=== PATIENT | male | born 1985 | race Asian ===

== ENCOUNTER 2016-11-19 13:50 | Emergency (ER) | payer SELFPAY ==
[~2016-11-19] VITALS: Ht 180.3 cm; Wt 65.0 kg
[~2016-11-19 13:50] MED LIST: AMIO200T2 PO; APIX5TAB PO; ATEN25 PO; CARV3.1231 PO; FURO-152 PO; LEVE500T53 PO; LISI-661 PO
[2016-11-19] MEDS ORDERED: ACETAMINOPHEN 1000 MG/ISO-OSM 100 ML IV ONE (14:30)
[2016-11-19] MEDS ORDERED: SODIUM CHLORIDE 0.9% 1,000 ML IV ONE (14:30)
[2016-11-19 15:09] LABS: BASOPHILS % (AUTO) 0.5 % (0.0-2.0); EOSINOPHILS % (AUTO) 1.2 % (1.0-6.0); HEMATOCRIT 52.3 % (41-53); HEMOGLOBIN 17.1 g/dL (13.5-17.5); LYMPHOCYTES # (AUTO) 2.5 K/uL (1.0-4.8); LYMPHOCYTES % (AUTO) 30.4 % (22.0-44.0); MEAN CORPUSCULAR HEMOGLOBIN 28.1 pg (26.0-34.0); MEAN CORPUSCULAR HGB CONC 32.7 G/dL (31.0-37.0); MEAN CORPUSCULAR VOLUME 86 fL (80-100); MONOCYTES # (AUTO) 0.7 K/uL (0.1-1.0); NEUTROPHILS % (AUTO) 59.9 % (40.0-70.0); PLATELET COUNT (AUTO) 176 K/uL (150-450); RED BLOOD CELL COUNT(AUTO) 6.08 MIL/uL (4.50-5.90); WHITE BLOOD COUNT (AUTO) 8.4 K/uL (4.5-11.0)
[2016-11-19 15:48] LABS: INFLUENZA TYPE B NEGATIVE FOR TYPE B (NEGATIVE)
[2016-11-19 16:05] LABS: APPEARANCE,URINE CLEAR (CLEAR); GLUCOSE, URINE (UA) NEGATIVE (NEGATIVE); KETONES,URINE NEGATIVE (NEGATIVE); LEUKOCYTE ESTERASE ,URINE NEGATIVE (NEGATIVE); OCCULT BLOOD,URINE NEGATIVE (NEGATIVE); PROTEIN,URINE NEGATIVE (NEGATIVE)
[2016-11-19 16:14] LABS: ADD UA MICROSCOPIC NO
[2016-11-19 16:15] LABS: ANION GAP 15 mmol/L (8-16); CALCIUM, TOTAL 8.4 mg/dL (8.8-10.5); CARBON DIOXIDE 21 mmol/L (22-29); CHLORIDE 103 mmol/L (98-107); CREATININE 1.45 mg/dL (0.60-1.30); GLOMERULAR FILTR. RATE CALC 56 mL/min (>60); POTASSIUM 4.2 mmol/L (3.5-5.1); SODIUM SERUM 139 mmol/L (136-145); UREA NITROGEN, BLOOD 18 mg/dL (7-18)
[2016-11-19 16:26] LABS: ALANINE AMINOTRANSFERASE 68 U/L (12-78); ALBUMIN 3.5 g/dL (3.4-5.0); ASPARTATE AMINOTRANSFERASE 44 U/L (15-37); BILIRUBIN,TOTAL 1.8 mg/dL (0.1-1.0); CREATINE KINASE, TOTAL 64 U/L (39-308); TOTAL PROTEIN, SERUM 6.8 g/dL (6.4-8.2)
[2016-11-19 16:35] LABS: B-TYPE NATRIURETIC PEPTIDE 877 pg/mL (0-100)
[2016-11-19 19:33] VITALS: BP 142/70
== END 2016-11-19 20:17 | disposition home or self-care (01) ==
LOC: EMS 13:51
DX: R10.13 Epigastric pain (principal); R07.9 Chest pain, unspecified; Q87.40 Marfan syndrome, unspecified; J11.1 Influenza due to unidentified influenza virus with other respiratory manifestations; I48.91 Unspecified atrial fibrillation
CPT/HCPCS: 36415; 71010; 71275; 80053; 81003; 82550; 83690; 83880; 84484; 85025; 85379; 87804; 93005; 96365; 99285; J0131; J7030

== ENCOUNTER 2016-12-04 18:14 | Inpatient (IN) | payer SELFPAY ==
[~2016-12-04] VITALS: Ht 180.3 cm; Wt 63.6 kg
[~2016-12-04 18:14] MED LIST changes: -APIX5TAB PO; -ATEN25 PO; -LISI-661 PO
[2016-12-04 18:37] LABS: GLUCOSE,POINT OF CARE 74 MG/DL (70-110)
[2016-12-04 19:04] LABS: BASOPHILS % (AUTO) 0.4 % (0.0-2.0); EOSINOPHILS % (AUTO) 0.6 % (1.0-6.0); HEMATOCRIT 51.7 % (41-53); HEMOGLOBIN 16.8 g/dL (13.5-17.5); LYMPHOCYTES # (AUTO) 3.1 K/uL (1.0-4.8); LYMPHOCYTES % (AUTO) 35.5 % (22.0-44.0); MEAN CORPUSCULAR HGB CONC 32.4 G/dL (31.0-37.0); MEAN CORPUSCULAR VOLUME 86 fL (80-100); MONOCYTES # (AUTO) 0.6 K/uL (0.1-1.0); MONOCYTES % (AUTO) 6.8 % (2.0-9.0); NEUTROPHILS % (AUTO) 56.7 % (40.0-70.0); PLATELET COUNT (AUTO) 193 K/uL (150-450); RED BLOOD CELL COUNT(AUTO) 5.99 MIL/uL (4.50-5.90); RED CELL DISTRIBUTION WIDTH 14.1 % (11.5-14.5); WHITE BLOOD COUNT (AUTO) 8.8 K/uL (4.5-11.0)
[2016-12-04 19:19] LABS: INR 1.1 (0.9-1.1)
[2016-12-04 19:24] LABS: B-TYPE NATRIURETIC PEPTIDE 1250 pg/mL (0-100)
[2016-12-04] MEDS ORDERED: AZITHROMYCIN 500 MG/NS 250 ML IV ONE (20:00)
[2016-12-04] MEDS ORDERED: CefTRIAXone 1 GM/DEXTROSE 50 ML IV ONE (20:00)
[2016-12-04] MEDS ORDERED: FUROSEMIDE 40 MG/4 ML VIAL IVP ONE (20:15)
[2016-12-04 20:26] LABS: ANION GAP 14 mmol/L (8-16); CALCIUM, TOTAL 8.6 mg/dL (8.8-10.5); CARBON DIOXIDE 20 mmol/L (22-29); CHLORIDE 105 mmol/L (98-107); CREATININE 1.42 mg/dL (0.60-1.30); GLOMERULAR FILTR. RATE CALC 57 mL/min (>60); POTASSIUM 4.8 mmol/L (3.5-5.1); SODIUM SERUM 139 mmol/L (136-145); UREA NITROGEN, BLOOD 19 mg/dL (7-18)
[2016-12-04 20:51] LABS: ALANINE AMINOTRANSFERASE 29 U/L (12-78); ALBUMIN 3.7 g/dL (3.4-5.0); ASPARTATE AMINOTRANSFERASE 26 U/L (15-37); BILIRUBIN,TOTAL 1.7 mg/dL (0.1-1.0); CREATINE KINASE MB 0.7 ng/mL (0-5); CREATINE KINASE, TOTAL 76 U/L (39-308); TOTAL PROTEIN, SERUM 6.9 g/dL (6.4-8.2)
[2016-12-04] MEDS ORDERED: FAMOTIDINE 10 MG/ML 2 ML VIAL IVP ONE (21:15)
[2016-12-04] MEDS ORDERED: METOCLOPRAMIDE HCL 5 MG/ML 2 ML VIAL IVP ONE (21:15)
[2016-12-04] MEDS ORDERED: SODIUM CHLORIDE 0.9% 100 ML ONE (21:29)
[2016-12-04] MEDS ORDERED: IOVERSOL 350 MG/ML 100 ML VIAL ONE (21:29)
[2016-12-04 21:47] LABS: APPEARANCE,URINE CLEAR (CLEAR); GLUCOSE, URINE (UA) NEGATIVE (NEGATIVE); KETONES,URINE TRACE mg/dL (NEGATIVE); LEUKOCYTE ESTERASE ,URINE NEGATIVE (NEGATIVE); OCCULT BLOOD,URINE NEGATIVE (NEGATIVE); PH,URINE 5.5 (5.0-8.0); PROTEIN,URINE POS 1+ (NEGATIVE)
[2016-12-04 21:49] LABS: ADD UA MICROSCOPIC NO
[2016-12-04] MEDS ORDERED: HEPARIN SODIUM 25000 UNITS/D5W 250 ML IV PRN (23:15)
[2016-12-04] MEDS ORDERED: DILTIAZEM HCL 5 MG/ML 5 ML VIAL IVP ONE (23:15)
[2016-12-04] MEDS ORDERED: 0.9% SODIUM CHLORIDE 10 ML SYRINGE IVP PRN (23:30)
[2016-12-04] MEDS ORDERED: ACETAMINOPHEN 325 MG TABLET PO PRN (23:30)
[2016-12-05 00:35] VITALS: BP 107/66
[2016-12-05] MEDS ORDERED: OxyCODONE HCL/ACETAMINOPHEN 5-325 MG TABLET PO PRN ×2 (00:45)
[2016-12-05] MEDS ORDERED: ONDANSETRON HCL 4 MG/2 ML VIAL IVP PRN (00:45)
[2016-12-05] MEDS ORDERED: MAGNESIUM HYDROXIDE SUSPENSION 30 ML UDCUP PO PRN (00:45)
[2016-12-05] MEDS ORDERED: ACETAMINOPHEN 325 MG TABLET PO PRN (00:45)
[2016-12-05] MEDS ORDERED: 0.9% SODIUM CHLORIDE 10 ML SYRINGE IVP PRN (00:45)
[2016-12-05] MEDS: FUROSEMIDE 40 MG/4 ML VIAL IVP SCH ×3 (00:50→21:00)
[2016-12-05] MEDS: LevETIRAcetam 500 MG TABLET PO SCH ×3 (00:50→21:12)
[2016-12-05] MEDS: CARVEDILOL 3.125 MG TABLET PO SCH ×2 (00:50→09:00)
[2016-12-05] MEDS: DOCUSATE SODIUM 100 MG CAPSULE PO SCH ×3 (01:11→21:11)
[2016-12-05 05:22] VITALS: BP 94/66
[2016-12-05 06:33] LABS: BASOPHILS % (AUTO) 0.4 % (0.0-2.0); EOSINOPHILS % (AUTO) 0.3 % (1.0-6.0); HEMATOCRIT 47.2 % (41-53); HEMOGLOBIN 15.1 g/dL (13.5-17.5); LYMPHOCYTES # (AUTO) 1.9 K/uL (1.0-4.8); LYMPHOCYTES % (AUTO) 24.6 % (22.0-44.0); MEAN CORPUSCULAR HEMOGLOBIN 27.8 pg (26.0-34.0); MEAN CORPUSCULAR VOLUME 87 fL (80-100); MONOCYTES # (AUTO) 0.6 K/uL (0.1-1.0); MONOCYTES % (AUTO) 8.1 % (2.0-9.0); NEUTROPHILS # (AUTO) 5.1 K/uL (1.8-7.7); NEUTROPHILS % (AUTO) 66.6 % (40.0-70.0); PLATELET COUNT (AUTO) 169 K/uL (150-450); RED BLOOD CELL COUNT(AUTO) 5.44 MIL/uL (4.50-5.90); RED CELL DISTRIBUTION WIDTH 13.3 % (11.5-14.5); WHITE BLOOD COUNT (AUTO) 7.7 K/uL (4.5-11.0)
[2016-12-05 06:57] LABS: ALBUMIN 3.4 g/dL (3.4-5.0); BILIRUBIN,TOTAL 1.5 mg/dL (0.1-1.0); CALCIUM, TOTAL 8.1 mg/dL (8.8-10.5); CREATININE 1.45 mg/dL (0.60-1.30); TOTAL PROTEIN, SERUM 6.4 g/dL (6.4-8.2)
[2016-12-05 07:25] VITALS: BP 86/49
[2016-12-05] MEDS: PANTOPRAZOLE SODIUM 40 MG/VIAL IVP SCH (09:16)
[2016-12-05] MEDS: AMIODARONE HCL 200 MG TABLET PO SCH (09:16)
[2016-12-05 11:43] VITALS: BP 100/52
[2016-12-05 16:02] VITALS: BP 101/52
[2016-12-05 19:36] VITALS: BP 98/62
[2016-12-05] MEDS ORDERED: IPRATROPIUM BROMIDE 0.5 MG/2.5 ML NEB SOLUTION NEB PRN (21:00)
[2016-12-05] MEDS ORDERED: ALBUTEROL SULFATE 2.5 MG/0.5 ML NEB SOLUTION NEB PRN (21:00)
[2016-12-06] VITALS (8 sets, daily range): BP systolic 92–111; BP diastolic 50–72
[2016-12-06] MEDS: CARVEDILOL 3.125 MG TABLET PO SCH ×3 (00:32→21:00)
[2016-12-06 06:09] LABS: BASOPHILS % (AUTO) 0.6 % (0.0-2.0); EOSINOPHILS % (AUTO) 1.5 % (1.0-6.0); HEMATOCRIT 47.3 % (41-53); HEMOGLOBIN 15.1 g/dL (13.5-17.5); LYMPHOCYTES # (AUTO) 3.2 K/uL (1.0-4.8); LYMPHOCYTES % (AUTO) 43.4 % (22.0-44.0); MEAN CORPUSCULAR HEMOGLOBIN 27.9 pg (26.0-34.0); MEAN CORPUSCULAR HGB CONC 31.8 G/dL (31.0-37.0); MEAN CORPUSCULAR VOLUME 88 fL (80-100); MONOCYTES # (AUTO) 0.5 K/uL (0.1-1.0); MONOCYTES % (AUTO) 7.4 % (2.0-9.0); NEUTROPHILS # (AUTO) 3.5 K/uL (1.8-7.7); NEUTROPHILS % (AUTO) 47.1 % (40.0-70.0); PLATELET COUNT (AUTO) 161 K/uL (150-450); RED BLOOD CELL COUNT(AUTO) 5.39 MIL/uL (4.50-5.90); RED CELL DISTRIBUTION WIDTH 13.2 % (11.5-14.5); WHITE BLOOD COUNT (AUTO) 7.3 K/uL (4.5-11.0)
[2016-12-06 06:32] LABS: CALCIUM, TOTAL 7.8 mg/dL (8.8-10.5); CREATININE 1.39 mg/dL (0.60-1.30); POTASSIUM 3.8 mmol/L (3.5-5.1)
[2016-12-06] MEDS: FUROSEMIDE 40 MG/4 ML VIAL IVP SCH ×2 (08:19→21:00)
[2016-12-06] MEDS: PANTOPRAZOLE SODIUM 40 MG/VIAL IVP SCH (08:22)
[2016-12-06] MEDS: LevETIRAcetam 500 MG TABLET PO SCH ×2 (08:23→22:46)
[2016-12-06] MEDS: AMIODARONE HCL 200 MG TABLET PO SCH ×2 (08:23→22:46)
[2016-12-06] MEDS: DOCUSATE SODIUM 100 MG CAPSULE PO SCH ×2 (08:23→22:46)
[2016-12-06] MEDS ORDERED: PHENYLEPHRINE 200 MG/D5%-WATER 250 ML IV PRN (21:41)
[2016-12-06] MEDS ORDERED: DIGOXIN 250 MCG/ML 2 ML AMP IVP ONE (21:45)
[2016-12-07 00:05] VITALS: BP 101/74
[2016-12-07 04:00] VITALS: BP 69/74
[2016-12-07] MEDS ORDERED: DIGOXIN 250 MCG/ML 2 ML AMP IVP ONE ×2 (04:00)
[2016-12-07 06:35] LABS: ANION GAP 7 mmol/L (8-16); CALCIUM, TOTAL 7.9 mg/dL (8.8-10.5); CARBON DIOXIDE 26 mmol/L (22-29); CHLORIDE 104 mmol/L (98-107); CREATININE 1.25 mg/dL (0.60-1.30); DIGOXIN 0.42 ng/mL (0.90-2.00); GLOMERULAR FILTR. RATE CALC > 60 mL/min (>60); POTASSIUM 4.1 mmol/L (3.5-5.1); SODIUM SERUM 137 mmol/L (136-145); UREA NITROGEN, BLOOD 19 mg/dL (7-18)
[2016-12-07 08:00] VITALS: BP 108/74
[2016-12-07] MEDS: CARVEDILOL 3.125 MG TABLET PO SCH ×2 (09:00→23:56)
[2016-12-07] MEDS: PANTOPRAZOLE SODIUM 40 MG/VIAL IVP SCH (09:17)
[2016-12-07] MEDS: DOCUSATE SODIUM 100 MG CAPSULE PO SCH ×2 (09:18→21:37)
[2016-12-07] MEDS: AMIODARONE HCL 200 MG TABLET PO SCH ×2 (09:18→21:37)
[2016-12-07] MEDS: FUROSEMIDE 40 MG/4 ML VIAL IVP SCH ×2 (09:18→21:37)
[2016-12-07] MEDS: LevETIRAcetam 500 MG TABLET PO SCH ×2 (09:19→21:39)
[2016-12-07 12:00] VITALS: BP 90/61
[2016-12-07 16:00] VITALS: BP 90/53
[2016-12-07 20:00] VITALS: BP 99/64
[2016-12-07] MEDS ORDERED: HEPARIN SODIUM 25000 UNITS/D5W 250 ML IV PRN (22:51)
[2016-12-07] MEDS ORDERED: HEPARIN SODIUM,PORCINE 5,000 UNITS/ML VIAL IVP PRN ×2 (23:00)
[2016-12-08] VITALS: BP 95/64
[2016-12-08 04:00] VITALS: BP 87/61
[2016-12-08 06:27] LABS: INR 1.2 (0.9-1.1); PROTHROMBIN TIME 12.7 SEC (9.4-11.6)
[2016-12-08 06:29] LABS: BASOPHILS % (AUTO) 0.5 % (0.0-2.0); EOSINOPHILS % (AUTO) 1.8 % (1.0-6.0); HEMATOCRIT 50.8 % (41-53); HEMOGLOBIN 16.3 g/dL (13.5-17.5); LYMPHOCYTES # (AUTO) 2.6 K/uL (1.0-4.8); LYMPHOCYTES % (AUTO) 38.8 % (22.0-44.0); MEAN CORPUSCULAR HEMOGLOBIN 27.9 pg (26.0-34.0); MEAN CORPUSCULAR VOLUME 87 fL (80-100); MONOCYTES # (AUTO) 0.5 K/uL (0.1-1.0); MONOCYTES % (AUTO) 7.7 % (2.0-9.0); NEUTROPHILS # (AUTO) 3.4 K/uL (1.8-7.7); NEUTROPHILS % (AUTO) 51.2 % (40.0-70.0); PLATELET COUNT (AUTO) 171 K/uL (150-450); RED BLOOD CELL COUNT(AUTO) 5.84 MIL/uL (4.50-5.90); RED CELL DISTRIBUTION WIDTH 13.1 % (11.5-14.5); WHITE BLOOD COUNT (AUTO) 6.6 K/uL (4.5-11.0)
[2016-12-08 06:40] LABS: ANION GAP 8 mmol/L (8-16); CALCIUM, TOTAL 7.8 mg/dL (8.8-10.5); CARBON DIOXIDE 28 mmol/L (22-29); CHLORIDE 103 mmol/L (98-107); CREATINE KINASE, TOTAL 59 U/L (39-308); CREATININE 1.41 mg/dL (0.60-1.30); GLOMERULAR FILTR. RATE CALC 58 mL/min (>60); POTASSIUM 3.6 mmol/L (3.5-5.1); SODIUM SERUM 139 mmol/L (136-145); UREA NITROGEN, BLOOD 20 mg/dL (7-18)
[2016-12-08 07:17] LABS: B-TYPE NATRIURETIC PEPTIDE 801 pg/mL (0-100)
[2016-12-08 08:00] VITALS: BP 90/64
[2016-12-08] MEDS: AMIODARONE HCL 200 MG TABLET PO SCH ×2 (09:00→21:08)
[2016-12-08] MEDS: DIGOXIN 125 MCG TABLET PO SCH (09:00)
[2016-12-08] MEDS: CARVEDILOL 3.125 MG TABLET PO SCH ×2 (09:00→21:08)
[2016-12-08] MEDS: LevETIRAcetam 500 MG TABLET PO SCH ×2 (09:00→21:08)
[2016-12-08] MEDS: DOCUSATE SODIUM 100 MG CAPSULE PO SCH ×2 (09:00→21:08)
[2016-12-08] MEDS: PANTOPRAZOLE SODIUM 40 MG/VIAL IVP SCH (09:08)
[2016-12-08] MEDS: FUROSEMIDE 40 MG/4 ML VIAL IVP SCH ×2 (09:08→21:08)
[2016-12-08 12:00] VITALS: BP 103/53
[2016-12-08] MEDS ORDERED: SODIUM CHLORIDE 0.9% 100 ML ONE (13:46)
[2016-12-08] MEDS ORDERED: IOVERSOL 350 MG/ML 150 ML VIAL ONE (13:46)
[2016-12-08] MEDS ORDERED: CARVEDILOL 3.125 MG TABLET PO ONE (15:15)
[2016-12-08] MEDS ORDERED: SODIUM CHLORIDE 0.9% 250 ML IV ONE (15:15)
[2016-12-08 16:00] VITALS: BP 102/66
[2016-12-08] MEDS ORDERED: DIGOXIN 250 MCG/ML 2 ML AMP IVP ONE (16:00)
[2016-12-08] MEDS ORDERED: DIGOXIN 250 MCG/ML 2 ML AMP ONE (16:01)
[2016-12-08 20:00] VITALS: BP 119/76
[2016-12-09] VITALS: BP 108/55
[2016-12-09 04:00] VITALS: BP 93/75
[2016-12-09 08:00] VITALS: BP 89/45
[2016-12-09] MEDS: AMIODARONE HCL 200 MG TABLET PO SCH (09:00)
[2016-12-09] MEDS: CARVEDILOL 3.125 MG TABLET PO SCH (09:00)
[2016-12-09] MEDS: LevETIRAcetam 500 MG TABLET PO SCH (09:07)
[2016-12-09] MEDS: PANTOPRAZOLE SODIUM 40 MG/VIAL IVP SCH (09:07)
[2016-12-09] MEDS: DOCUSATE SODIUM 100 MG CAPSULE PO SCH (09:07)
[2016-12-09] MEDS: FUROSEMIDE 40 MG/4 ML VIAL IVP SCH (09:07)
[2016-12-09] MEDS: DIGOXIN 125 MCG TABLET PO SCH (09:17)
[2016-12-09 12:00] VITALS: BP 92/56
[2016-12-09 15:56] LABS: GLUCOSE,POINT OF CARE 125 MG/DL (70-110)
[2016-12-09 16:00] VITALS: BP 99/68
[2016-12-10] MEDS ORDERED: DIGOXIN 125 MCG TABLET PO SCH (09:00)
[2016-12-10] MEDS ORDERED: ASPIRIN 81 MG CHEWABLE TABLET PO SCH (09:00)
== END 2016-12-09 17:30 | disposition left against medical advice (07) | DRG 291 ==
LOC: EMS 18:15 → 5S 12-05 00:04 → ICUN 12-06 21:20 → ICU 12-09 15:00
PROVIDERS: ADMIT Internal Medicine; ATTEND Internal Medicine
DX: I11.0 Hypertensive heart disease with heart failure (principal); J18.9 Pneumonia, unspecified organism; J90 Pleural effusion, not elsewhere classified; Q87.40 Marfan syndrome, unspecified; J44.0 Chronic obstructive pulmonary disease with (acute) lower respiratory infection; Z68.1 Body mass index [BMI] 19.9 or less, adult; D89.9 Disorder involving the immune mechanism, unspecified; I50.22 Chronic systolic (congestive) heart failure; I34.0 Nonrheumatic mitral (valve) insufficiency; I48.91 Unspecified atrial fibrillation; I42.9 Cardiomyopathy, unspecified; Z53.21 Procedure and treatment not carried out due to patient leaving prior to being seen by health care provider; J44.9 Chronic obstructive pulmonary disease, unspecified; G40.909 Epilepsy, unspecified, not intractable, without status epilepticus; I95.9 Hypotension, unspecified; Z91.14 Patient's other noncompliance with medication regimen; Z82.49 Family history of ischemic heart disease and other diseases of the circulatory system; Z79.899 Other long term (current) drug therapy; Z82.41 Family history of sudden cardiac death
CPT/HCPCS: 71275; 75571; 82962; 83735; 87040; 87081; 93005; 93306; 94640; 96365; 96366; 96367; 96375; 99291; C9113; G0480; J0456; J0696; J1160; J1644; J1940; J2765; J3490; J7050

== ENCOUNTER 2017-07-03 02:24 | Emergency (ER) | payer SELFPAY ==
[~2017-07-03] VITALS: Ht 177.8 cm; Wt 63.6 kg
[2017-07-03] MEDS ORDERED: LISI-661 PO (02:39)
[2017-07-03] MEDS ORDERED: RIVA20TA PO (02:39)
[2017-07-03 03:36] VITALS: BP 138/80
== END 2017-07-03 04:11 | disposition home or self-care (01) ==
LOC: EMS 02:26
DX: R00.2 Palpitations (principal); F41.9 Anxiety disorder, unspecified
CPT/HCPCS: 93005; 99283

== ENCOUNTER 2024-09-09 12:07 | Emergency (ER) | payer OTHER ==
[~2024-09-09] VITALS: Ht 180.3 cm; Wt 63.0 kg
[~2024-09-09 12:07] MED LIST changes: +AMIO200 PO; -AMIO200T2 PO; +LEVE-71 PO; -LEVE500T53 PO; +LISI-893 PO; +RIVA20TA PO
[2024-09-09 12:11] VITALS: BP 132/87; PULSE 82; RESP 20; TEMP 98.4; O2SAT 99
[2024-09-09 13:16] LABS: BASOPHILS % (AUTO) 0.4 % (0.0-2.0); EOSINOPHILS % (AUTO) 0.5 % (1.0-6.0); HEMATOCRIT 50.9 % (41-53); HEMOGLOBIN 17.4 g/dL (13.5-17.5); LYMPHOCYTES # (AUTO) 1.8 K/uL (1.0-4.8); LYMPHOCYTES % (AUTO) 24.7 % (22.0-44.0); MEAN CORPUSCULAR HEMOGLOBIN 29.3 pg (26.0-34.0); MEAN CORPUSCULAR HGB CONC 34.1 G/dL (31.0-37.0); MEAN CORPUSCULAR VOLUME 86 fL (80-100); MONOCYTES # (AUTO) 0.3 K/uL (0.1-1.0); MONOCYTES % (AUTO) 4.4 % (2.0-9.0); PLATELET COUNT (AUTO) 180 K/uL (150-450); RED BLOOD CELL COUNT(AUTO) 5.93 MIL/uL (4.50-5.90); WHITE BLOOD COUNT (AUTO) 7.2 K/uL (4.5-11.0)
[2024-09-09 13:19] LABS: ANION GAP 8 mmol/L (8-16); CALCIUM, TOTAL 8.7 mg/dL (8.8-10.5); CARBON DIOXIDE 29 mmol/L (22-29); CHLORIDE 101 mmol/L (98-107); CREATININE 1.23 mg/dL (0.60-1.30); GLOMERULAR FILTR. RATE CALC > 60 mL/min (>60); GLUCOSE,RANDOM 86 mg/dL (70-110); POTASSIUM 3.7 mmol/L (3.5-5.1); SODIUM SERUM 138 mmol/L (136-145); UREA NITROGEN, BLOOD 11 mg/dL (7-18)
[2024-09-09 13:30] LABS: TROPONIN I-HIGH SENSITIVITY 8 ng/L (<76)
== END 2024-09-09 13:52 | disposition home or self-care (01) ==
LOC: EMS 12:07
DX: R07.89 Other chest pain (principal); I48.91 Unspecified atrial fibrillation; I48.92 Unspecified atrial flutter; I42.9 Cardiomyopathy, unspecified; Z95.810 Presence of automatic (implantable) cardiac defibrillator; Z59.00 Homelessness unspecified
CPT/HCPCS: 71045; 80048; 84484; 85025; 93005; 99285; 36415-L1; 36415-TC